=== PATIENT | male | born 1995 | race Caucasian/White ===

== ENCOUNTER 2022-09-03 19:39 | Emergency (ER) | payer MEDICAID, OTHER ==
[~2022-09-03] VITALS: Ht 170.2 cm; Wt 84.1 kg
[2022-09-03 20:30] VITALS: BP 127/81
== END 2022-09-03 21:01 | disposition home or self-care (01) ==
LOC: EMS 19:40
DX: H61.21 Impacted cerumen, right ear (principal); F12.90 Cannabis use, unspecified, uncomplicated
CPT/HCPCS: 69200; 99284; Z7502

== ENCOUNTER 2022-10-28 12:55 | Emergency (ER) | payer OTHER ==
[~2022-10-28] VITALS: Ht 170.2 cm; Wt 81.8 kg
[2022-10-28] MEDS ORDERED: CARB-223 AU (15:03)
[2022-10-28 15:10] VITALS: BP 128/77
== END 2022-10-28 15:33 | disposition home or self-care (01) ==
LOC: EMS 12:56
DX: H61.22 Impacted cerumen, left ear (principal); F12.90 Cannabis use, unspecified, uncomplicated
CPT/HCPCS: 69209; 99282; Z7502

== ENCOUNTER 2023-02-14 12:27 | Emergency (ER) | payer MEDICAID, OTHER ==
[~2023-02-14] VITALS: Ht 170.2 cm; Wt 84.1 kg
[~2023-02-14 12:27] MED LIST: CARB-223 AU
[2023-02-14 13:22] VITALS: BP 135/92
== END 2023-02-14 14:21 | disposition home or self-care (01) ==
LOC: EMS 12:27
DX: L02.02 Furuncle of face (principal); F12.90 Cannabis use, unspecified, uncomplicated
CPT/HCPCS: 99281; Z7502

== ENCOUNTER 2025-03-18 16:53 | Emergency (ER) | payer OTHER ==
[~2025-03-18] VITALS: Ht 170.2 cm; Wt 77.3 kg
[2025-03-18 17:35] VITALS: TEMP 98.5
[2025-03-18] MEDS: SODIUM CHLORIDE 0.9% 2,000 ML IV ONE (19:48)
[2025-03-18 19:55] VITALS: BP 112/72; PULSE 73; RESP 18; O2SAT 100
[2025-03-18 19:59] LABS: BASOPHILS % (AUTO) 0.6 % (0.0-2.0); EOSINOPHILS % (AUTO) 0.5 % (1.0-6.0); HEMOGLOBIN 13.8 g/dL (13.5-17.5); LYMPHOCYTES # (AUTO) 1.9 K/uL (1.0-4.8); LYMPHOCYTES % (AUTO) 17.8 % (22.0-44.0); MEAN CORPUSCULAR HGB CONC 32.9 G/dL (31.0-37.0); MEAN CORPUSCULAR VOLUME 88 fL (80-100); MONOCYTES # (AUTO) 0.4 K/uL (0.1-1.0); MONOCYTES % (AUTO) 3.9 % (2.0-9.0); NEUTROPHILS # (AUTO) 8.3 K/uL (1.8-7.7); NEUTROPHILS % (AUTO) 77.2 % (40.0-70.0); PLATELET COUNT (AUTO) 393 K/uL (150-450); RED BLOOD CELL COUNT(AUTO) 4.76 MIL/uL (4.50-5.90); RED CELL DISTRIBUTION WIDTH 13.5 % (11.5-14.5); WHITE BLOOD COUNT (AUTO) 10.7 K/uL (4.5-11.0)
[2025-03-18 20:13] LABS: ANION GAP 5 mmol/L (8-16); CALCIUM, TOTAL 9.2 mg/dL (8.8-10.5); CARBON DIOXIDE 30 mmol/L (22-29); CHLORIDE 104 mmol/L (98-107); CREATININE 0.78 mg/dL (0.60-1.30); GLOMERULAR FILTR. RATE CALC > 60 mL/min (>60); GLUCOSE,RANDOM 99 mg/dL (70-110); SODIUM SERUM 139 mmol/L (136-145); UREA NITROGEN, BLOOD 12 mg/dL (7-18)
== END 2025-03-18 20:38 | disposition home or self-care (01) ==
LOC: EMS 16:55
DX: R55 Syncope and collapse (principal); F12.90 Cannabis use, unspecified, uncomplicated
CPT/HCPCS: 99284; 96360; 80048; 85025; 36415; 93005; G0480; J7030; 96361